=== PATIENT | female | born 1985 | race Asian ===

== ENCOUNTER 2016-12-30 21:31 | Emergency (ER) | payer OTHER ==
[2016-12-30 22:18] VITALS: BP 120/80
== END 2016-12-30 22:18 | disposition home or self-care (01) ==
LOC: ED 21:31
DX: S16.1XXA Strain of muscle, fascia and tendon at neck level, initial encounter (principal); S00.83XA Contusion of other part of head, initial encounter; S40.022A Contusion of left upper arm, initial encounter; R04.0 Epistaxis; M25.572 Pain in left ankle and joints of left foot; V49.9XXA Car occupant (driver) (passenger) injured in unspecified traffic accident, initial encounter; Y93.89 Activity, other specified; Y99.8 Other external cause status; Y92.89 Other specified places as the place of occurrence of the external cause